=== PATIENT | female | born 1995 | race Caucasian/White ===

== ENCOUNTER 2021-02-02 22:09 | Emergency (ER) | payer MEDICAID ==
[~2021-02-02] VITALS: Ht 172.7 cm; Wt 94.3 kg
[2021-02-02 22:15] VITALS: BP_SYST 131
[2021-02-02 23:17] VITALS: BP_SYST 129
== END 2021-02-02 23:17 | disposition home or self-care (01) ==
LOC: SED 22:09
DX: R00.2 Palpitations (principal); F41.9 Anxiety disorder, unspecified; F12.90 Cannabis use, unspecified, uncomplicated; Z88.2 Allergy status to sulfonamides
CPT/HCPCS: 81025; 93005; 99283

== ENCOUNTER 2021-02-07 22:33 | Emergency (ER) | payer MEDICAID ==
[~2021-02-07] VITALS: Ht 175.3 cm; Wt 94.3 kg
[2021-02-07 22:33] VITALS: BP_SYST 140
--- NOTE | 2021-02-07 22:51 | NUR ---
RECEIVED AND IN ROOM 7, PLACED ON MONITOR, VSS
--- NOTE | 2021-02-07 23:35 | NUR ---
SR ON MONITOR NO ECTOPY, RESP UNLABORED, CLEAR MENTATION AND SPEECH, SKIN WARM AND DRY
--- NOTE | 2021-02-08 00:01 | NUR ---
DR PICKETT IN TO ASSESS.
[2021-02-08] MEDS ORDERED: IBUPROFEN 600 MG TABLET PO ONE (00:15)
[2021-02-08] MEDS ORDERED: IBUP-1969 PO (00:19)
--- NOTE | 2021-02-08 00:31 | NUR ---
UPAMBULATING STEADY TO BATHROOM, NO DYSPNEA, DENIES CP/SOB
--- NOTE | 2021-02-08 00:40 | NUR ---
CXR COMPLETED, TOLERATED WELL
--- NOTE | 2021-02-08 00:55 | NUR ---
Patient given written and verbal discharge instructions and verbalizes understanding. ER MD discussed with patient the results and treatment provided. Patient in stable condition. ID arm band removed. Rx of IBU given. Patient educated on pain management and to follow up with PMD. Pain Scale 0/10 Opportunity for questions provided and answered. Medication side effect fact sheet provided.
[2021-02-08 00:56] VITALS: BP_SYST 121
== END 2021-02-08 00:56 | disposition home or self-care (01) ==
LOC: SED 22:33
DX: M94.0 Chondrocostal junction syndrome [Tietze] (principal); F41.9 Anxiety disorder, unspecified; J45.909 Unspecified asthma, uncomplicated; F17.210 Nicotine dependence, cigarettes, uncomplicated; Z88.2 Allergy status to sulfonamides; Z79.899 Other long term (current) drug therapy
CPT/HCPCS: 71045; 99283; 99285